=== PATIENT | female | born 1965 | race Caucasian/White ===

== ENCOUNTER → 2023-03-30 14:26 | Outpatient (BNVA) | payer SELFPAY | PROVIDERS: PCP Family Medicine; Visit Provider Internal Medicine | DX: K12.1 Other forms of stomatitis (principal); R13.10 Dysphagia, unspecified; M25.50 Pain in unspecified joint; M45.0 Ankylosing spondylitis of multiple sites in spine; L40.9 Psoriasis, unspecified; M19.042 Primary osteoarthritis, left hand | CPT/HCPCS: 36415; 72202; 73120; 80053; 82550; 82607; 83516; 84443; 85025; 85651; 86036; 86140; 86160; 86162; 86200; 86235; 86255; 86376; 86480; 86704; 86803; 86812; 87340 ==

== ENCOUNTER 2023-05-01 10:08 | Outpatient (CLI) | payer SELFPAY ==
--- NOTE | 2023-05-01 10:00 | FL_ITS ---
WS: [id number] Exam: FL barium swallow modifd [id number] Date/Time of Exam: 05/01/2023 10:00 AM Reason For Exam: Other dysphagia Fluoroscopy time: 2min [id number] minutes # of spot films: Modified barium swallow is performed in conjunction with the speech therapy service. Swallowing function at the level of the oropharynx was normal. The patient tolerated thin liquid, nec tar consistency, pudding consistency and solid barium mixture foodstuffs without aspiration or penetr ation. The patient swallowed a barium tablet without difficulty. IMPRESSION: 1. The patient tolerated all consistencies of barium mixture foodstuffs without aspiration or penetra tion. A separate report of recommendations and findings will follow from the speech therapy service.
== END 2023-05-01 10:09 | disposition home or self-care (01) ==
LOC: RAD 10:11
PROVIDERS: PCP Family Medicine; Visit Provider Otolaryngology
DX: R13.10 Dysphagia, unspecified (principal)
CPT/HCPCS: 74230; 92611

== ENCOUNTER 2024-08-08 11:03 | Outpatient (CLI) | payer BC, MEDICAID, SELFPAY ==
--- NOTE | 2024-08-08 11:06 | MM_ITS ---
WS: [id number] Bilateral screening 3D tomosynthesis digital mammogram, 08/08/2024 11:08 AM Clinical Data: SCREENING Comparison: None. Findings: No spiculated masses or clustered calcifications are seen. There are no secondary signs of carcinoma . MM/MM scr BI tomosynthesis [id number] Impression: Negative bilateral mammogram no prior exam for review. Recommend annual screening mammograms. BIRADS: 1 - Negative. FOLLOW UP: 1 Year Follow-up DENSITY: There are scattered areas of fibroglandular density. The CAD field checker was used
== END 2024-08-08 11:04 | disposition home or self-care (01) ==
LOC: RAD 11:04
PROVIDERS: PCP Family Medicine; Visit Provider Nurse Practitioner Family
DX: Z12.31 Encounter for screening mammogram for malignant neoplasm of breast (principal)
CPT/HCPCS: 77063; 77067

== ENCOUNTER → 2024-12-03 11:26 | Outpatient (BNVA) | payer BC, MEDICAID, SELFPAY | PROVIDERS: PCP Family Medicine; Visit Provider Obstetrics & Gynecology | DX: D26.9 Other benign neoplasm of uterus, unspecified (principal) | CPT/HCPCS: 76830 ==

== ENCOUNTER 2025-01-22 18:26 | Emergency (ER) | payer BC, MEDICAID, SELFPAY ==
[2025-01-22 18:30] VITALS: BP 171/89; PULSE 78; RESP 12; TEMP 37.2; O2SAT 98
[2025-01-22 20:17] LABS: Basophils % 0.6 %; Eosinophils # 0.3 10^3/uL (0.0-0.8); Eosinophils % 3.9 %; Hematocrit 39.8 % (36-47); Lymphocytes # 3.3 10^3/uL (0.8-4.8); Lymphocytes % 45.7 %; Mean Corpuscular HGB Conc 31.9 g/dL (30-55); Mean Corpuscular Hemoglobin 28.7 pg (27-33); Mean Platelet Volume 9.3 fL (7.4-10.4); Monocytes # 0.7 10^3/uL (0.2-0.9); Monocytes % 9.5 %; Neutrophils # 2.91 10^3/uL (1.8-7.7); Neutrophils % 40.2 %; Nucleated Red Blood Cells % 0 %; Platelet Count 158 10^3/cmm (157-399); Red Blood Count 4.42 10^6/uL (3.85-5.65); White Blood Count 7.24 10^3/uL (3.29-11.43)
== END 2025-01-22 20:44 | disposition left against medical advice (07) ==
PROVIDERS: Emergency Medicine; Emergency Provider Family Medicine; PCP Nurse Practitioner Family
DX: Z01.89 Encounter for other specified special examinations (principal); Z53.21 Procedure and treatment not carried out due to patient leaving prior to being seen by health care provider
CPT/HCPCS: 36415; 85025

== ENCOUNTER 2025-01-23 19:13 | Emergency (ER) | payer BC, MEDICAID, SELFPAY ==
[2025-01-23 19:19] VITALS: BP 130/77; PULSE 79; RESP 16; TEMP 36.6; O2SAT 95; BMI 29.8
--- NOTE | 2025-01-23 20:16 | ED_ITS ---
HPI - Skin/Abscess/Foreign Bdy 2 General: Chief complaint: Skin/Abscess/Foreign Body Stated complaint: R calf spider bite Time Seen by Provider: 01/23/25 20:16 History of Present Illness: Patient is a pleasant 60-year-old female that initially started having an area to her right distal posterior proximal lower leg 6 days ago, that returns to ED for recheck. Patient was seen here yesterday. She has been on doxycycline since that time. She initially stated that she awoke with redness to her right posterior lower leg and had to spot the redness however she did not see a spider. This has worsened since that time. No fevers. No chills. No nausea, no vomiting. Associated symptoms: Deny chills, fever(s), nausea or vomiting Related Data Home Medications ?Medication ?Instructions ?Recorded ?Confirmed cyanocobalamin (vitamin B-12) mcg IM 10/02/24 12/18/24 1,000 mcg/mL injection solution metformin 500 mg tablet,extended mg PO 10/02/24 release 24 hr progesterone micronized 200 mg mg PO 10/02/24 12/18/24 capsule rosuvastatin 10 mg tablet mg PO 10/02/24 12/18/24 Previous Rx's ?Medication ?Instructions ?Recorded hydroxychloroquine 200 mg tablet 200 mg PO BID #60 tab s 05/04/23 nystatin 100,000 unit/mL oral 5 ml PO QID #250 mL 08/21 03/13 suspension triamcinolone acetonide 0.1 % 1 applic dental TID PRN mouth 09/06/23 dental paste irritation #5 grams estradiol 1 mg tablet (Estrace) 1 mg PO DAILY #30 tabs 10/02/24 medroxyprogesterone 2.5 mg tablet 2.5 mg PO DAILY #30 tabs 10/02/24 (Provera) estradiol 2 mg tablet (Estrace) 2 mg PO DAILY #30 tabs 12/18/24 doxycycline hyclate 100 mg capsule 100 mg PO BID 21 da ys #42 caps 01/23/25 Allergies Allergy/AdvReac Type Severity Reaction Status Date / Time No Known Allergies Allergy Verified 01/22/25 18:33 Review of Systems 2 General: Reports: 10 or more systems reviewed and unremarkable except in HPI and below Const: Denies: fever(s) or chills Eyes: Denies: change in vision or blurry vision ENMT: Denies: throat pain or uvular edema Card: Denies: chest pain or palpitations Resp: Denies: dyspnea or productive cough GI: Denies: abdominal pain, nausea or vomiting : Denies: flank pain or difficulty voiding Skin/Breast: Reports: sores Neuro: Denies: headache(s) or numbness in extremities Psych: Denies: anxiety or depression Endo: Denies: polyuria or polydipsia Maximino/Lymph: Denies: easy bruising or easy bleeding All/Imm: Denies: urticaria or throat swelling PFSH ED 2 PFSH: Medical History Dysphagia Arthralgia Oral ulcer Family History (Reviewed 12/18/24 @ 09: by Luzma Isbell, RN) Father Colon cancer Hyperlipidemia Hypertension Diabetes Mother Uterine cancer Hyperlipidemia Hypertension Stroke Diabetes Social History Smoking and tobacco/nicotine status: former use of tobacco/nicotine Physical Exam 2 HENMT: THROAT: no uvular edema Skin: SKIN IMAGES (FEMALE): 1. redness 2. white patches superficial with oozing Course 2 Vital Signs: Vital signs: Vital Signs Temperature 97.8 F 01/23/25 19:19 Pulse Rate 79 01/23/25 19:19 Respiratory Rate 16 01/23/25 19:19 Blood Pressure 123/79 01/23/25 21:08 Pulse Oximetry 95 01/23/25 19:19 Oxygen Delivery Me thod Room Air 01/23/25 19:19 MDM - Skin/Abscess/Foreign Bdy Medicial Decision Making Patient presents to ED after cellulitis 6 days ago, that does appear consistent with spider bite. She was seen here in the ED yesterday, placed on doxycycline. The redness is approximately the same, however there is some more oozing superficially. Will numb this area superficially, and attempt to express material. Will obtain routine labs, give vancomycin x 1. Most likely will need doxycycline course extended. Discussed with patient that she will need to be seen in the next 24-48 hours for any additional further decision making and possible admission. Lab Data 01/23/25 20:50 01/23/25 20:50 Radiology Impressions Tibia/Fibula X-Ray 01/23/25 20:27 IMPRESSION: No acute bony abnormality. Posterior subcutaneous edema noted without foreign body or soft tissue gas. Laboratory Results WBC 6.13 10^3/uL (3.29-11.43) 01/23/25 20:50 RBC 4.61 10^6/uL (3.85-5.65) 01/23/25 20:50 Hgb 13.10 g/dL (11.27-16.99) 01/23/25 20:50 Hct 41.3 % (36-47) 01/23/25 20:50 MCV 89.6 fl (85-98) 01/23/25 20:50 MCH 28.4 pg (27-33) 01/23/25 20:50 MCHC 31.7 g/dL (30-55) 01/23/25 20:50 RDW 12.9 % (12.1-15.1) 01/23/25 20:50 Plt Count 181 10^3/cmm (157-399) 01/23/25 20:50 MPV 9.3 fL (7.4-10.4) 01/23/25 20:50 Neut % (Auto) 45.3 % 01/23/25 20:50 Lymph % (Auto) 40.1 % 01/23/25 20:50 [place] % (Auto) 9.3 % 01/23/25 20:50 Eos % (Auto) 4.2 % 01/23/25 20:50 Baso % (Auto) 0.8 % 01/23/25 20:50 Neut # (Auto) 2.77 10^3/uL (1.8-7.7) 01/23/25 20:50 Lymph # (Auto) 2.5 10^3/uL (0.8-4.8) 01/23/25 20:50 [place] # (Auto) 0.6 10^3/uL (0.2-0.9) 01/23/25 20:50 Eos # (Auto) 0.3 10^3/uL (0.0-0.8) 01/23/25 20:50 Baso # (Auto) 0.1 10^3/uL (0.0-0.1) 01/23/25 20:50 Nucleated RBC % (auto) 0 % 01/23/25 20:50 Nucleated RBCs # 0.0 /100WBC 01/23/25 20:50 Sodium 139 mmol/L (136-145) 01/23/25 20:50 Potassium 4.1 mmol/L (3.5-5.1) 01/23/25 20:50 Chloride 104 mmol/L (98-107) 01/23/25 20:50 Carbon Dioxide 26 mmol/L (22-29) 01/23/25 20:50 Anion Gap 13.1 (5-19) 01/23/25 20:50 BUN 10 mg/dL (6-20) 01/23/25 20:50 Creatinine 0.7 mg/dL (0.5-0.9) 01/23/25 20:50 GFR Calculation 85.9 mL/min (90-130) L 01/23/25 20:50 Glucose 133 mg/dL (65-115) H 01/23/25 20:50 Calculated Osmolality 289 mOsm/kg (285-295) 01/23/25 20:50 Calcium 8.5 mg/dL (8.5-10.5) 01/23/25 20:50 Total Bilirubin 0.2 mg/dL (0.15-1.2) 01/23/25 20:50 AST 20 U/L (0-32) 01/23/25 20:50 ALT 19 U/L (0-33) 01/23/25 20:50 Alkaline Phosphatase 106 U/L (35-105) H 01/23/25 20:50 Total Protein 7.2 g/dL (6.6-8.7) 01/23/25 20:50 Albumin 4.0 g/dL (3.5-5.2) 01/23/25 20:50 Globulin 3.2 g/dL (1.3-4.6) 01/23/25 20:50 No radiology studies performed this visit Discharge Plan Discharge Patient Disposition: Home Clinical Impression: Cellulitis Qualifiers: Site of cellulitis: extremity Site of cellulitis of extremity: lower extremity Laterality: right Qualified Code(s): L03.115 - Cellulitis of right lower limb Abscess of skin or subcutaneous tissue Qualifiers: Site of cutaneous abscess: extremity Site of cutaneous abscess of extremity: l ower extremity Laterality: right Qualified Code(s): L02.415 - Cutaneous abscess of right lower limb Condition: Stable Prescriptions: New doxycycline hyclate 100 mg capsule 100 mg PO BID 21 Days Qty: 42 0RF No Action nystatin 100,000 unit/mL suspension 5 ml PO QID Qty: 250 1RF Rx Instructions: swish and spit triamcinolone acetonide 0.1 % paste 1 applic dental TID PRN (Reason: mouth irritation) Qty: 5 0RF Rx Instructions: use after food and/or drink and/or oral hygiene cyanocobalamin (vitamin B-12) 1,000 mcg/mL solution IM metformin 500 mg tablet extended release 24 hr PO rosuvastatin 10 mg tablet PO progesterone micronized 200 mg capsule PO estradiol [Estrace] 1 mg tablet 1 mg PO DAILY Qty: 30 3RF medroxyprogesterone [Provera] 2.5 mg tablet 2.5 mg PO DAILY Qty: 30 3RF estradiol [Estrace] 2 mg tablet 2 mg PO DAILY Qty: 30 6RF hydroxychloroquine 200 mg tablet 200 mg PO BID Qty: 60 3RF Discharge Orders: Discharge ED (Routine); Ordered 01/23/25 Ordered By: Lilly Marie Referrals: Juan Jose,ORA HernandezP [Primary Care Provider, Nurse Practitioner] Discharge Diet: Usual diet Discharge Activity: Resume usual activity Patient Instructions: Black Spider Bite (ED) Activity Restrictions/Additional Instructions: Return to ED or see primary care tomorrow?Monday. Take doxycycline with food. Watch the sun, this can make burning worse with doxycycline. Utilize sunblock. Add probiotic to your antibiotic or utilize active culture yogurt to avoid infectious diarrhea Clean this area daily and cover. Return to ED if this area is worse. Print Language: Welsh Coding Level of Care Code ED Agricultural Mechanic for Kylie Vasquez
--- NOTE | 2025-01-23 20:27 | XRR_ITS ---
PROCEDURE INFORMATION: Exam: XR Right Tibia and Fibula Exam date and time: 01/23/2025 8:52 PM Age: 60 years old Clinical indication: Pain; Lower leg; Right; Additional info: PT states she was bit by something 1 wk ago, swelling and redness on posterior side TECHNIQUE: Imaging protocol: Radiologic exam of the right tibia and fibula. Views: 2 views. COMPARISON: No relevant prior studies available. FINDINGS: Bones/joints: No evidence of acute fracture or dislocation. No erosive disease. No significant degenerative change. Soft tissues: Subcutaneous edema noted posteriorly. No radiopaque foreign body or soft tissue gas. XR/XR tibia fibula RT 2V [id number] IMPRESSION: No acute bony abnormality. Posterior subcutaneous edema noted without foreign body or soft tissue gas.
[2025-01-23] MEDS: lidocaine-prilocaine cream 5 gm 1 APPLIC TOPICAL (21:03)
[2025-01-23 21:06] LABS: Basophils # 0.1 10^3/uL (0.0-0.1); Basophils % 0.8 %; Eosinophils # 0.3 10^3/uL (0.0-0.8); Eosinophils % 4.2 %; Hematocrit 41.3 % (36-47); Lymphocytes # 2.5 10^3/uL (0.8-4.8); Lymphocytes % 40.1 %; Mean Corpuscular HGB Conc 31.7 g/dL (30-55); Mean Corpuscular Hemoglobin 28.4 pg (27-33); Mean Corpuscular Volume 89.6 fl (85-98); Mean Platelet Volume 9.3 fL (7.4-10.4); Monocytes # 0.6 10^3/uL (0.2-0.9); Monocytes % 9.3 %; Neutrophils # 2.77 10^3/uL (1.8-7.7); Neutrophils % 45.3 %; Nucleated Red Blood Cells % 0 %; Platelet Count 181 10^3/cmm (157-399); Red Blood Count 4.61 10^6/uL (3.85-5.65); Red Cell Distribution Width 12.9 % (12.1-15.1); White Blood Count 6.13 10^3/uL (3.29-11.43)
[2025-01-23 21:08] VITALS: BP 123/79
[2025-01-23 21:18] LABS: Alanine Aminotransferase 19 U/L (0-33); Alkaline Phosphatase 106 U/L (35-105); Aspartate Amino Transferase 20 U/L (0-32); Blood Urea Nitrogen 10 mg/dL (6-20); Calcium 8.5 mg/dL (8.5-10.5); Carbon Dioxide 26 mmol/L (22-29); Chloride 104 mmol/L (98-107); Creatinine Clr Calc Pharmacy 95.6245; Globulin 3.2 g/dL (1.3-4.6); Glomerular Filtration Rate 85.9 mL/min (90-130); Glucose 133 mg/dL (65-115); Osmolality Calculated 289 mOsm/kg (285-295); Sodium 139 mmol/L (136-145); Total Bilirubin 0.2 mg/dL (0.15-1.2); Total Protein 7.2 g/dL (6.6-8.7)
[2025-01-23 21:19] LABS: Anion Gap 13.1 (5-19); Potassium 4.1 mmol/L (3.5-5.1)
[2025-01-23 22:05] VITALS: BP 123/79; PULSE 84; RESP 16; O2SAT 95
== END 2025-01-23 22:07 | disposition home or self-care (01) ==
PROVIDERS: Emergency Provider Physician Assistant; PCP Nurse Practitioner Family
DX: L03.115 Cellulitis of right lower limb (principal); L02.415 Cutaneous abscess of right lower limb; Z79.84 Long term (current) use of oral hypoglycemic drugs; W57.XXXA Bitten or stung by nonvenomous insect and other nonvenomous arthropods, initial encounter
CPT/HCPCS: 36415; 73590; 80053; 85025; 87040; 96374; 99284; J3370; J7050; J9999

== ENCOUNTER 2025-01-25 20:04 | Emergency (ER) | payer BC, MEDICAID, SELFPAY ==
[2025-01-25 20:06] VITALS: BP 162/76; PULSE 75; RESP 16; TEMP 36.6; O2SAT 97; BMI 29.8
--- NOTE | 2025-01-25 20:36 | ED_ITS ---
HPI - Skin/Abscess/Foreign Bdy 2 General: Chief complaint: Skin/Abscess/Foreign Body Stated complaint: spider bite, told to come back 2 days Time Seen by Provider: 01/25/25 20:29 History of Present Illness: Patient is a pleasant 60-year-old female that initially started having an area to her right distal posterior proximal lower leg 8 days ago, that returns to ED for recheck. Patient was seen here 2 days ago. She has been on doxycycline since that time. She initially stated that she awoke with redness to her right posterior lower leg and had to spot the redness however she did not see a spider. This has worsened since that time. No fevers. No chills. No nausea, no vomiting. Patient believes this does look slightly better. Her doxycycline did not make it to the pharmacy as ordered, and confirmed Associated symptoms: Deny chills, fever(s), nausea or vomiting Related Data Home Medications ?Medication ?Instructions ?Recorded ?Confirmed cyanocobalamin (vitamin B-12) mcg IM 10/02/24 12/18/24 1,000 mcg/mL injection solution metformin 500 mg tablet,extended mg PO 10/02/24 release 24 hr progesterone micronized 200 mg mg PO 10/02/24 12/18/24 capsule rosuvastatin 10 mg tablet mg PO 10/02/24 12/18/24 Previous Rx's ?Medication ?Instructions ?Recorded hydroxychloroquine 200 mg tablet 200 mg PO BID #60 tab s 05/04/23 nystatin 100,000 unit/mL oral 5 ml PO QID #250 mL 08/21 03/13 suspension triamcinolone acetonide 0.1 % 1 applic dental TID PRN mouth 09/06/23 dental paste irritation #5 grams estradiol 1 mg tablet (Estrace) 1 mg PO DAILY #30 tabs 10/02/24 medroxyprogesterone 2.5 mg tablet 2.5 mg PO DAILY #30 tabs 10/02/24 (Provera) estradiol 2 mg tablet (Estrace) 2 mg PO DAILY #30 tabs 12/18/24 doxycycline hyclate 100 mg capsule 100 mg PO BID 21 da ys #42 caps 01/23/25 doxycycline hyclate 100 mg capsule 100 mg PO BID 21 da ys #42 caps 01/25/25 Allergies Allergy/AdvReac Type Severity Reaction Status Date / Time No Known Allergies Allergy Verified 01/22/25 18:33 Review of Systems 2 General: Reports: 10 or more systems reviewed and unremarkable except in HPI and below Const: Denies: fever(s) or chills Eyes: Denies: change in vision or blurry vision ENMT: Denies: throat pain Card: Denies: chest pain or palpitations Resp: Denies: dyspnea or productive cough GI: Denies: abdominal pain, nausea or vomiting : Denies: flank pain or difficulty voiding Skin/Breast: Reports: sores Neuro: Denies: headache(s) or numbness in extremities Psych: Denies: anxiety or depression Endo: Denies: polyuria or polydipsia Maximino/Lymph: Denies: easy bruising or easy bleeding All/Imm: Denies: urticaria or throat swelling PFSH ED 2 PFSH: Medical History Dysphagia Arthralgia Oral ulcer Family History Father Colon cancer Hyperlipidemia Hypertension Diabetes Mother Uterine cancer Hyperlipidemia Hypertension Stroke Diabetes Social History Smoking and tobacco/nicotine status: former use of tobacco/nicotine Physical Exam 2 Const: COMMON NORMALS: no acute distress, average body habitus and patient oriented x3 HENMT: COMMON NORMALS: normocephalic and atraumatic HEAD & SCALP: n ormocephalic and atraumatic Chest: COMMONS NORMALS: normal inspection of the chest and normal palpation of entire chest wall Resp: COMMON NORMALS: normal respiratory effort, No retractions and clear to auscultation bilaterally AUSCULTATION: clear to auscultation bilaterally Cardio: COMMON NORMALS: regular rate and regular rhythm RATE: regular rate RHYTHM: regular rhythm GI: COMMON NORMALS: Normal to inspection, nondistended, normoactive bowel sounds present and Soft to palpation PALPATION: Yes Soft to palpation : COMMON NORMALS: Yes no CVA tenderness BLADDER/KIDNEY EXAM: Yes no CVA tenderness Back/Pelvis: COMMON NORMALS: no CVA tenderness Extremity: COMMON NORMALS: full ROM EXTREMITY IMAGE (BACK): 1. red, flat area, with minimal drainage Neuro: COMMON NORMALS: patient oriented x3 Procedures Abscess I/D Site: lower extremity Side (if applicable): right Sedation/analgesia: other (emla) Technique: incised with #11 blade (Debrided top portion of white material. Improved from previous.) Amount of fluid expressed (mL): 5 Irrigation: Yes Packing used?: none Complications: other (no complications, vaseline gauze and opt site applied) Course 2 Vital Signs: Vital signs: Vital Signs Temperature 97.9 F 01/25/25 20:06 Pulse Rate 75 01/25/25 20:06 Respiratory Rate 16 01/25/25 20:06 Blood Pressure 162/76 01/25/25 20:06 Pulse Oximetry 97 01/25/25 20:06 Oxygen Delivery Me thod Room Air 01/25/25 20:06 MDM - Skin/Abscess/Foreign Bdy Medicial Decision Making Patient presents to ED after cellulitis 6 days ago, that does appear consistent with spider bite. She was seen here in the ED yesterday, placed on doxycycline. The redness is approximately the same, however there is some more oozing superficially. Will numb this area superficially, and attempt to express material. Will obtain routine labs, give vancomycin x 1. Most likely will need doxycycline course extended. Discussed with patient that she will need to be seen in the next 24-48 hours for any additional further decision making and possible admission. No radiology studies performed this visit Discharge Plan Discharge Patient Disposition: Home Clinical Impression: Cellulitis Qualifiers: Site of cellulitis: extremity Site of cellulitis of extremity: lower extremity Laterality: right Qualified Code(s): L03.115 - Cellulitis of right lower limb Spider bite wound Qualifiers: Encounter type: subsequent encounter Injury intent: accidental or unintentional Qualified Code(s): T63.301D - Toxic effect of unspecified spider venom, accidental (unintentional), subsequent encounter Condition: Stable Prescriptions: New doxycycline hyclate 100 mg capsule 100 mg PO BID 21 Days Qty: 42 0RF No Action nystatin 100,000 unit/mL suspension 5 ml PO QID Qty: 250 1RF Rx Instructions: swish and spit triamcinolone acetonide 0.1 % paste 1 applic dental TID PRN (Reason: mouth irritation) Qty: 5 0RF Rx Instructions: use after food and/or drink and/or oral hygiene cyanocobalamin (vitamin B-12) 1,000 mcg/mL solution IM metformin 500 mg tablet extended release 24 hr PO rosuvastatin 10 mg tablet PO progesterone micronized 200 mg capsule PO estradiol [Estrace] 1 mg tablet 1 mg PO DAILY Qty: 30 3RF medroxyprogesterone [Provera] 2.5 mg tablet 2.5 mg PO DAILY Qty: 30 3RF estradiol [Estrace] 2 mg tablet 2 mg PO DAILY Qty: 30 6RF hydroxychloroquine 200 mg tablet 200 mg PO BID Qty: 60 3RF doxycycline hyclate 100 mg capsule 100 mg PO BID 21 Days Qty: 42 0RF Discharge Orders: Discharge ED (Routine); Ordered 01/25/25 Ordered By: Lilly Marie Referrals: Ingram,Mary, ACCOUNTING REPRESENTATIVE [Primary Care Provider, Nurse Practitioner] Discharge Diet: Usual diet Discharge Activity: Resume usual activity Patient Instructions: Insect Bite or Sting (ED), Cellulitis (ED) Activity Restrictions/Additional Instructions: Utilize previous instructions from 2 days ago Follow-up with your doctor on Monday for reevaluation?call for appointment. Monday, Monday, or Monday is fine as long as your leg looks like it does now. As noted before, caution on antibiotics. Utilize probiotics or active culture yogurt Caution on doxycycline?make sure you take food or crackers with doxycycline. Please return to ED with worsening redness, fever, worsening pain Print Language: Tristanian Coding Level of Care Code ED Cardiology Nurse for Kylie Vasquez
[2025-01-25] MEDS: doxycycline 100 mg Tablet PO (21:56)
[2025-01-25 23:14] VITALS: BP 168/82; PULSE 82; RESP 16; O2SAT 98
[2025-01-25] MEDS: lidocaine-prilocaine cream 5 gm 1 APPLIC TOPICAL (23:14)
== END 2025-01-25 23:15 | disposition home or self-care (01) ==
PROVIDERS: Emergency Provider Physician Assistant; PCP Nurse Practitioner Family
DX: L03.115 Cellulitis of right lower limb (principal); T63.301D Toxic effect of unspecified spider venom, accidental (unintentional), subsequent encounter; Z87.891 Personal history of nicotine dependence; X58.XXXD Exposure to other specified factors, subsequent encounter
CPT/HCPCS: 10060; 99283; J9999

== ENCOUNTER → 2025-02-17 14:30 | Outpatient (BNVA) | payer BC, MEDICAID, SELFPAY | PROVIDERS: PCP Family Medicine; Visit Provider Obstetrics & Gynecology | DX: Z12.4 Encounter for screening for malignant neoplasm of cervix (principal) | CPT/HCPCS: 87624 ==

== ENCOUNTER 2025-04-22 11:01 | Day surgery (SDC) | payer BC, MEDICAID, SELFPAY ==
[2025-04-22 11:14] VITALS: BMI 29.2
[2025-04-22 11:26] VITALS: BP 170/77; PULSE 91; RESP 18; TEMP 36.5; O2SAT 96
--- NOTE | 2025-04-22 11:39 | W.PM.OPSUD ---
Surgery/Procedure H&P Update DATE OF PROCEDURE: April 22, 2025 DATE H&P PERFORMED: 03/28/25 H&P UPDATE INFORMATION: I have reviewed H&P completed within last 30 days, I have examined patient prior to procedure and No changes to prior documentation PLANNED PROCEDURE: Operation Date: 04/22/25 12:00 Proposed Procedures p EGD EGD with Biopsy [id number] G0121 K21.9 R12 R13.10(Not Applicable) - Logan Bhat MD s Colonoscopy(Not Applicable) - Logan Bhat MD
--- NOTE | 2025-04-22 11:47 | ANES.PREANE2 ---
Pre-Anesthetic Assessment Height/Weight: Height 1.68 m Weight 82.1 kg Temp Pulse Resp BP Pulse Ox O2 Del Method 97.7 F 91 18 170/77 96 Room Air 04/22/25 11:04/22/25 11:04/22/25 11:04/22/25 11:04/22/25 11:04/22/25 11: Operation Date: 04/22/25 12:00 Proposed Procedures p EGD EGD with Biopsy [id number] G0121 K21.9 R12 R13.10(Not Applicable) - Logan Bhat MD s Colonoscopy(Not Applicable) - Logan Bhat MD Familial anesthetic complications: none Was Beta Adina taken within 24 hours: N/A Was Clonidine taken within 24 hours: N/A Last intake: Intake Last Liquid Date 04/22/25 Last Liquid Time 02:00 Last Solid Date 04/21/25 Last Solid Time 08:00 Social No alcohol and No tobacco Exam alert and oriented x 3 Airway Submandibular: within normal limits Cervical ROM: within normal limits Mallampati: Class IV Dentition: false (upper) and partials (lower) History/ROS No significant history except as noted Pulmonary None reported CV/HEM None reported None reported Hepatic None reported GI Gastroesophageal Reflux Disease Metabolic Diabetes Mellitus and Hyperlipidemia [facility] None reported Neuropsych None reported Anesthetic Plan ASA status: 3 Anesthesia: Anesthesia Evaluation and MAC Risk of > 500 ml blood loss (7ml/kg in children): No Medications/Allergies Home Medications ?Medication ?Instructions ?Recorded ?Confirmed ?Last Taken ?Type hydroxychloroquine 200 mg tablet 200 mg PO BID #60 tabs 05/04/23 04/22/25 04/20/25 Rx triamcinolone acetonide 0.1 % 1 applic dental TID PRN mouth 09/06/23 04/22/25 Unknown Rx dental paste irritation #5 grams cyanocobalamin (vitamin B-12) 1,000 mcg IM .MONTHLY 10/02/24 04/16/25 04/20/25 History 1,000 mcg/mL injection solution metformin 500 mg tablet,extended 500 mg PO DAILY 10/02/24 04/16/25 04/20/25 History release 24 hr rosuvastatin 10 mg tablet 10 mg PO BEDTIME 10/02/24 04/16/25 04/20/25 History estradiol 2 mg tablet (Estrace) 2 mg PO DAILY #30 tabs 12/18/24 04/16/25 04/20/25 Rx pantoprazole 40 mg tablet,delayed 40 mg PO BID 03/28/25 04/16/25 04/20/25 History release tirzepatide 2.5 mg/0.5 mL 2.5 mg SUBCUT .WEEKLY 03/28/25 04/16/25 04/03/25 History subcutaneous pen injector (Mounjaro) medroxyprogesterone 2.5 mg tablet 2.5 mg PO DAILY 04/16/25 04/16/25 04/20/25 History ondansetron HCl 4 mg tablet 4 mg PO DAILY PRN Nausea And 04/16/25 04/22/25 Unknown History Vomiting Allergies Allergy/AdvReac Type Severity Reaction Status Date / Time No Known Allergies Allergy Verified 03/28/25 10:13 Current Medications Generic Name Dose Route Start Last Admin Trade Name Freq PRN Reason Stop Dose Admin Sodium Chloride 1,000 mls @ 15 mls/hr 04/22/25 11:13 04/22/25 11:41 Sodium Chloride 0.9% IV 04/23/25 11:12 15 mls/hr .Q24H PRN Administration COLONOSCOPY FLUIDS PFSH Anesthesia Medical History (Updated 03/28/25 @ 10:48 by Logan Bhat MD) Dysphagia Arthralgia Oral ulcer Family History Father Colon cancer Hyperlipidemia Hypertension Diabetes Mother Uterine cancer Hyperlipidemia Hypertension Stroke Diabetes Social History Smoking and tobacco/nicotine status: former use of tobacco/nicotine
[2025-04-22 12:03] VITALS: BP 128/65; PULSE 76; RESP 18; TEMP 36.8; O2SAT 95
--- NOTE | 2025-04-22 12:08 | ANE.PACU2 ---
Inpatient post-anesthesia follow up: Airway intact: Yes Vital signs: Temperature 98.2 F Pulse Rate 76 Respiratory Rate 18 Blood Pressure 128/65 Pulse Oximetry 95 Oxygen Delivery Me thod Room Air Oxygen Flow Rate Fraction of Inspir ed Oxygen Hydration adequate: Yes Nausea and vomiting: No Pain level: 1 Mental status: Baseline
[2025-04-22 12:12] VITALS: BP 138/70; PULSE 71; RESP 18; O2SAT 96
== END 2025-04-22 12:21 | disposition home or self-care (01) ==
PROVIDERS: PCP Nurse Practitioner Family; Visit Provider Student in an Organized Health Care Education/Training Program
PROC: 0DJ08ZZ Inspection of Upper Intestinal Tract, Via Natural or Artificial Opening Endoscopic (ICD-10-PCS; principal; 2025-04-22 12:00)
DX: K21.9 Gastro-esophageal reflux disease without esophagitis (principal); R12 Heartburn; R13.10 Dysphagia, unspecified; K29.50 Unspecified chronic gastritis without bleeding; Z79.84 Long term (current) use of oral hypoglycemic drugs; E11.9 Type 2 diabetes mellitus without complications; E78.5 Hyperlipidemia, unspecified; Z87.891 Personal history of nicotine dependence
CPT/HCPCS: 36416; 43239; 82962; 88305; 88342; J2704; J7030